=== PATIENT | male | born 2000 | race Caucasian/White ===

== ENCOUNTER 2025-03-11 00:43 | Emergency (ER) | payer OTHER ==
[~2025-03-11] VITALS: Ht 175.3 cm; Wt 81.7 kg
[2025-03-11] MEDS ORDERED: CIPR500 PO (01:25)
== END 2025-03-11 01:32 | disposition home or self-care (01) ==
LOC: ER 00:43
DX: S91.331A Puncture wound without foreign body, right foot, initial encounter (principal); W45.0XXA Nail entering through skin, initial encounter; E11.40 Type 2 diabetes mellitus with diabetic neuropathy, unspecified
CPT/HCPCS: 73630; 99283-25